=== PATIENT | female | born 1985 | race Two or more races ===

== ENCOUNTER 2024-11-09 22:06 | Emergency (ER) | payer MEDICAID, SELFPAY ==
[2024-11-09 22:09] VITALS: BMI 22.8
[2024-11-09 22:27] VITALS: BP 113/73; PULSE 77; RESP 16; TEMP 36.8; O2SAT 99
--- NOTE | 2024-11-09 22:30 | XR_ITS ---
Examination: Duplex scan of the lower extremity, unilateral right complete Date and time of exam: November 09, 2024 1143 hours INDICATIONS: Right leg pain beginning 3 weeks ago Technique: Duplex scan of the extremity veins using B-mode/grayscale imaging and Doppler spectral analysis and color flow Attention is directed to internal echogenicity, compression and augmentation involving these veins, color flow assessment, spectral analysis Findings: Major deep venous structures in the extremity demonstrate normal course and caliber. There is no evidence of deep vein thrombosis. Normal color flow and spectral analysis Unable to visualize greater saphenous vein Impression: Negative for DVT..
[2024-11-09] MEDS: GABAPENTIN 300 MG CAPSULE PO (22:47)
[2024-11-09] MEDS: ACETAMINOPHEN 500 MG TABLET PO (22:47)
--- NOTE | 2024-11-10 00:32 | EDNOTE_ITS ---
ED Extremity Problem RME/HPI General Chief complaint: Extremity Injury, Lower Stated complaint: RT SCIATIC PAIN/CRAMPS Time Seen by Provider: 11/09/24 22:30 Arrival date/time: 11/09/24 22:06 39F with no significant PMH presents to ED with 3 weeks of RLE pain and some numbness. Patient denies SOB, but is on OCP. Patient also denies fall/trauma, bowel/bladder incontinence, and saddle paresthesia. Limitations: no limitations Related Data Previous Rx's ?Medication ?Instructions ?Recorded Promethazine Hcl (Phenergan) 1 tab PO Q4-6HRPRN ##15 0 02/26/12 Allergies Allergy/AdvReac Type Severity Reaction Status Date / Time No Known Allergies Allergy Unknown Uncoded 02/27/12 10:14 Review of Systems Review of Systems Systems Reviewed: All systems reviewed, normal except as documented Constitutional Constitutional: Reports system reviewed and no additional complaints, except as documented, Denies fever(s) and Denies headache(s) ENT Ears, Nose, Mouth, and Throat: Denies disequilibrium and Denies headache(s) Cardiovascular Cardiovascular: Reports system reviewed and no additional complaints, except as documented, Denies chest pain and Denies dyspnea Respiratory Respiratory: Reports system reviewed and no additional complaints, except as documented, Denies cough and Denies dyspnea Gastrointestinal Gastrointestinal: Reports system reviewed and no additional complaints, except as documented, Denies abdominal pain, Denies nausea and Denies vomiting Musculoskeletal Musculoskeletal: Reports as per HPI, Reports arthralgias and Reports radiating pain into limb Neurologic Neurologic: Reports system reviewed and no additional complaints, except as documented, Denies confusion, Denies disequilibrium and Denies headache(s) Psychiatric Psychiatric: Denies confusion Past Medical History Social History SMOKING STATUS: Never smoker ED Exam General Limitations: Present no limitations General appearance: Present alert and in no apparent distress Head Head exam: Present atraumatic Eye Eye exam: Present normal appearance, PERRL and EOMI ENT ENT exam: Present normal exam, normal oropharynx and mucous membranes moist Neck Neck exam: Present normal inspection, full ROM and trachea midline Chest Chest inspection: Present normal inspection and symmetric chest wall rise Respiratory Respiratory exam: Present normal lung sounds bilaterally Cardiovascular Cardiovascular exam: Present regular rate, normal rhythm and normal heart sounds Abdominal Exam Abdominal exam: Present soft and normal bowel sounds Extremities Exam Extremities exam: Present normal inspection and full ROM Back Exam Back exam: Present normal inspection and full ROM Neurological Exam Neurological exam: Present alert, oriented X3 and CN II-XII intact Psychiatric Psychiatric exam: Present normal affect and normal mood Skin Skin exam: Present warm, dry, intact and normal color Course Quality Measures none Orders Category Date Time Status US venous doppler LE RT Stat Exams 11/09/24 22:30 Completed Acetaminophen Tab [Tylenol ES Tab] Med 11/09/24 22:31 Discontinued 500 mg PO X1 ONE Gabapentin [Neurontin] Med 11/09/24 22:30 Discontinued 300 mg PO X1 ONE Vital Signs Vital signs: Vital Signs Temperature 98.2 F 11/09/24 22:27 Pulse Rate 77 11/09/24 22:27 Respiratory Rate 16 11/09/24 22:27 Blood Pressure 113/73 11/09/24 22:27 Pulse Oximetry (%) 99 11/09/24 22:27 Oxygen Delivery Method Room Air 11/09/24 22:27 O2 at 98% on RA and WNLs Extremity Problem MDM Narrative MDM Narrative:: 39F with no significant PMH presents to ED with 3 weeks of RLE pain and some numbness. Patient denies SOB, but is on OCP. Patient also denies fall/trauma, bowel/bladder incontinence, and saddle paresthesia. Physical exam reveals no gross RLE swelling. Normal WOB. Patient is afebrile, calm, and alert. US no DVT. Symptoms improved with meds. Likely sciatica. Patient data External records reviewed:: [facility] previous records Clinical information provided by:: patient Social determinants that could affect healthcare access:: none Patient has the following chronic illnesses:: none How is presenting disease/condition affected by chronic disease/condition?: no chronic disease Evaluation data The following diagnostics were reviewed and interpreted by me:: radiology exam(s) Lab and/or radiology exams considered but not ordered:: ordered Interpretation Summary: above Medications / Prescriptions Medications or Prescriptions considered but not ordered:: ordered Medication administrations:: Medication Administration History Discontinued Medications Acetaminophen (Acetaminophen 500 Mg Tablet) 500 mg PO X1 ONE Stop: 11/09/24 22:32 Last Admin: 11/09/24 22:47 Dose: 500 mg Documented By: Gabapentin (Gabapentin 300 Mg Capsule) 300 mg PO X1 ONE Stop: 11/09/24 22:31 Last Admin: 11/09/24 22:47 Dose: 300 mg Documented By: above Consultations Consultation(s) initiated? (list below): No Diagnosis Extremity Problem Differential Diagnosis: herpes zoster, gout, cellulitis, superficial thrombophlebitis, deep venous thrombosis of upper extremity, lower extremity edema, deep vein thrombosis of lower extremity and other (sciatica) Most likely diagnosis given after review of the tests above:: sciatica Admission Indicated Admission indicated?: not indicated Admission Request Was there a request for admission?: No Disposition Plan Disposition Plan: Discharge Discharge Attestation Discharge Attestation: The patient and all family members were given an opportunity to ask questions and understood the discharge instructions. Discharge instructions specifically effects, indications for sooner follow up or return to the emergency department, and the expected course of current diagnosis. Patient condition: Stable Discharge Plan Plan Patient Disposition: HOME (Self Care) Disposition Comment: Stable Prescriptions/Referrals Prescriptions/Med Rec: No Action Promethazine Hcl (Phenergan) 25 MG tablet 1 tab PO Q4-6HRPRN Qty: 15 0RF Referrals: Inge Jordan PA-C [Primary Care Provider] - In 1 week Problem List Clinical Impression: Sciatica Patient/Caregiver Discharge Instructions Education Materials: ED Sciatica Additional Instructions: Please follow-up with PCP within 24-48 hours and return immediately if symptoms worsen. If problem persists, recommend outpatient PT and/or MRI follow-up. In the meantime, rest, use ice/heat, and/or compression. Print Language: Serbian Stand Alone Forms: Patient Portal Info Letter MACK/JULIO Supervising Physician MANUEL Supervising Physician: Dr. Gomez
== END 2024-11-10 00:58 | disposition home or self-care (01) ==
PROVIDERS: Emergency Provider Emergency Medicine; PCP Physician Assistant
DX: M54.31 Sciatica, right side (principal)
CPT/HCPCS: 93971; 99284; A9270

== ENCOUNTER 2024-12-20 17:18 | Emergency (ER) | payer SELFPAY ==
[2024-12-20 17:45] VITALS: BP 140/80; PULSE 83; RESP 18; TEMP 37; O2SAT 95
--- NOTE | 2024-12-20 17:53 | EDNOTE_ITS ---
<Statement entered by Ebonie Estrella MD - 12/23/24 07:25> As co-signing physician, I was present and available for consult prn. I concur with the plan and care as documented by the midlevel provider. Lower Extremity Injury RME/HPI General Chief Complaint: Extremity Injury, Lower Stated Complaint: PAIN IN R) LEG, UNABLE TO MOVE OR FEEL LEG Source: patient Arrival date/time: 12/20/24 17:18 39-year-old female with no known medical history presents to the emergency room with a chief complaint of pain that begins in her right hip and radiates down her right leg x 2 Mode of arrival: ambulatory Limitations: no limitations Related Data Previous Rx's ?Medication ?Instructions ?Recorded Promethazine Hcl (Phenergan) 1 tab PO Q4-6HRPRN ##15 0 02/26/12 ibuprofen 600 mg tablet 600 mg PO Q8H PRN fever or p ain 12/20/24 #20 tabs cephalexin 500 mg capsule 500 mg PO TID #15 caps 12/21 hydrocodone 5 mg-acetaminophen 325 1 tab PO Q6H PRN pa in #14 tabs 12/21/24 mg tablet ibuprofen 600 mg tablet 600 mg PO Q6H PRN pain #30 t abs 12/21/24 Allergies Allergy/AdvReac Type Severity Reaction Status Date / Time No Known Allergies Allergy Unknown Uncoded 12/20/24 17:21 Review of Systems Review of Systems Systems Reviewed: All systems reviewed, normal except as documented Constitutional Constitutional: Reports system reviewed and no additional complaints, except as documented, Denies fatigue, Denies fever(s), Denies headache(s) and Denies weakness Eyes Eyes: Reports system reviewed and no additional complaints, except as documented, Denies blurry vision and Denies change in vision ENT Ears, Nose, Mouth, and Throat: Reports system reviewed and no additional compl aints, except as documented, Denies otalgia, Denies headache(s), Denies nasal congestion, Denies throat swelling and Denies vertigo Cardiovascular Cardiovascular: Reports system reviewed and no additional complaints, except as documented, Denies chest pain, Denies dyspnea and Denies dyspnea on exertion Respiratory Respiratory: Reports system reviewed and no additional complaints, except as documented, Denies chest congestion, Denies cough, Denies dyspnea, Denies dyspnea on exertion and Denies wheezing Gastrointestinal Gastrointestinal: Reports system reviewed and no additional complaints, except as documented, Denies abdominal pain, Denies cramping, Denies nausea and Denies vomiting Genitourinary Genitourinary: Reports system reviewed and no additional complaints, except as documented Musculoskeletal Musculoskeletal: Reports system reviewed and no additional complaints, except as documented, Denies back pain, Reports joint swelling, Reports limited range of motion, Reports numbness and Reports radiating pain into limb Integumentary/Breasts Skin/Breast: Reports system reviewed and no additional complaints, except as documented and Denies wounds Neurologic Neurologic: Reports system reviewed and no additional complaints, except as documented, Denies confusion, Denies headache(s), Denies lack of coordination, Reports numbness, Denies vertigo and Denies weakness Psychiatric Psychiatric: Reports system reviewed and no additional complaints, except as documented, Denies anxiety, Denies confusion, Denies depression, Denies paranoia, Denies suicidal ideation and Denies tactile hallucinations Endocrine Endocrine: Reports system reviewed and no additional complaints, except as documented and Denies fatigue Hematologic/Lymphatic Hematologic/Lymphatic: Reports system reviewed and no additional complaints, except as documented and Denies lymphadenopathy Allergic/Immunologic Allergic/Immunologic: Reports system reviewed and no additional complaints, except as documented, Denies throat swelling, Denies urticaria and Denies wheezing Past Medical History Past Medical History CARDIAC: Negative Congestive Heart Failure RESPIRATORY: Negative Chronic Obstructive Pulmonary Disease (COPD) GENITOURINARY: Negative Renal Disease ENDOCRINE: Negative Diabetes Mellitus Type 1 or Diabetes Mellitus Type 2 Social History SMOKING STATUS: Never smoker ED Exam General Limitations: Present no limitations General appearance: Present alert and in no apparent distress Head Head exam: Present atraumatic Eye Eye exam: Present normal appearance, PERRL and EOMI ENT ENT exam: Present normal exam, normal oropharynx and mucous membranes moist Neck Neck exam: Present normal inspection, full ROM and trachea midline Chest Chest inspection: Present normal inspection and symmetric chest wall rise Respiratory Respiratory exam: Present normal lung sounds bilaterally Cardiovascular Cardiovascular exam: Present regular rate, normal rhythm and normal heart sounds Abdominal Exam Abdominal exam: Present soft and normal bowel sounds Extremities Exam Extremities exam: Present normal inspection and full ROM Back Exam Back exam: Present normal inspection, full ROM and CVA tenderness (R) Neurological Exam Neurological exam: Present alert, oriented X3 and CN II-XII intact Psychiatric Psychiatric exam: Present normal affect and normal mood Skin Skin exam: Present warm, dry, intact and normal color Course Quality Measures none Orders Category Date Time Status Ketorolac Inj [Toradol Inj] Med 12/20/24 17:51 Discontinued 30 mg IM X1 ONE Vital Signs Vital signs: Vital Signs Temperature 98.6 F 12/20/24 17:45 Pulse Rate 83 12/20/24 17:45 Respiratory Rate 18 12/20/24 17:45 Blood Pressure 140/80 H 12/20/24 17:45 Pulse Oximetry (%) 95 12/20/24 17:45 O2 saturation 95% within normal limits Extremity Injury, Lower MDM Narrative MDM Narrative:: 39-year-old female with no known medical history presents to the emergency room with a chief complaint of pain that begins in her right hip and radiates down her right leg x 2 Patient is hemodynamically stable and in no apparent distress. Physical examination shows pain and tenderness that begins in her lumbar area of her spine and radiates down her right foot and leg. Patient states this is an intermittent pain and has she has been told it is due to her sciatic. Patient states she has not seen a chiropractor or a physical therapist and has not been referred to a retention specialist. The patient denies any loss of bowel or bladder function or saddle anesthesia. The patient is able to ambulate but states she is having pain shooting down her right leg with movement. Pain medication was given to the patient. The patient was educated to follow-up with her primary care provider for referral to physical therapy or a chiropractor for further management of her sciatic pain. The patient denies any trauma. Patient was discharged and educated to follow-up with primary care provider in the next 24 to 48 hours and return to the emergency room for any evidence of worsening signs or symptoms Patient data External records reviewed:: [facility] previous records Clinical information provided by:: patient Social determinants that could affect healthcare access:: none Patient has the following chronic illnesses:: No chronic illness How is presenting disease/condition affected by chronic disease/condition?: no chronic disease Evaluation data The following diagnostics were reviewed and interpreted by me:: lab results and radiology exam(s) Lab and/or radiology exams considered but not ordered:: Labs and radiology exams considered and ordered Interpretation Summary: N/A Medications / Prescriptions Medications or Prescriptions considered but not ordered:: Medication given Medication administrations:: Medication Administration History Discontinued Medications Ketorolac Tromethamine (Ketorolac Inj 60 Mg/2 Ml Vial) 30 mg IM X1 ONE Stop: 12/20/24 17:52 Last Admin: 12/20/24 18:01 Dose: 30 mg Documented By: OA Medication given Consultations Consultation(s) initiated? (list below): No Diagnosis Extremity Injury, Lower Differential Diagnosis: other (Sciatica/lumbar back pain) Most likely diagnosis given after review of the tests above:: Sciatica Admission Indicated Admission indicated?: not indicated Admission Request Was there a request for admission?: No Disposition Plan Disposition Plan: Discharge Discharge Attestation Discharge Attestation: The patient and all family members were given an opportunity to ask questions and understood the discharge instructions. Discharge instructions specifically effects, indications for sooner follow up or return to the emergency department, and the expected course of current diagnosis. Patient condition: Stable Discharge Plan Plan Patient Disposition: HOME (Self Care) Discharge Disposition comment: Stable Prescriptions/Referrals Prescriptions/Med Rec: New ibuprofen 600 mg tablet 600 mg PO Q8H PRN (Reason: fever or pain) Qty: 20 0RF No Action Promethazine Hcl (Phenergan) 25 MG tablet 1 tab PO Q4-6HRPRN Qty: 15 0RF cephalexin 500 mg capsule 500 mg PO TID Qty: 15 0RF hydrocodone-acetaminophen 5-325 mg tablet 1 tab PO Q6H MDD 9 PRN (Reason: pain) Qty: 14 0RF ibuprofen 600 mg tablet 600 mg PO Q6H PRN (Reason: pain) Qty: 30 0RF Problem List Clinical Impression: Sciatica of right side Patient/Caregiver Discharge Instructions Education Materials: ED Sciatica Additional Instructions: Please follow-up with your primary care provider in the next 24 to 48 hours. Your findings are consistent with sciatica. Please follow-up with your primary care provider for referral to physical therapy or a chiropractor to help you with your signs and symptoms. Medication was sent to your pharmacy please pick it up and take it as indicated For any evidence of worsening signs or symptoms return to the emergency room immediately Print Language: Uzbek Stand Alone Forms: Ellie Award Info., Patient Portal Info Letter MACK/JULIO Supervising Physician MACK/JULIO Supervising Physician: Dr. Trujillo
[2024-12-20] MEDS: KETOROLAC INJ 60 MG/2 ML VIAL 30 MG IM (18:01)
== END 2024-12-20 19:00 | disposition home or self-care (01) ==
PROVIDERS: Emergency Provider Family Medicine; PCP Family Medicine
DX: M54.31 Sciatica, right side (principal)
CPT/HCPCS: 96372; 99283; J1885

== ENCOUNTER 2024-12-21 00:56 | Emergency (ER) | payer SELFPAY ==
[2024-12-21 00:57] VITALS: BMI 24.4
[2024-12-21 01:43] VITALS: BP 122/56; PULSE 71; RESP 18; TEMP 36.9; O2SAT 99
--- NOTE | 2024-12-21 01:48 | PD.EDBACK ---
ED Back Injury Pain RME/HPI General Chief Complaint: Abdominal Pain Stated Complaint: RIGHT FLANK PAIN RADIATES DOWN LEG Time Seen by Provider: 12/21/24 01:48 Arrival date/time: 12/21/24 00:56 RME / HPI RME / HPI Narrative: This section includes all my notes and documentations, including HPI, PE, and ED course. Constantin Ramos MD HPI: 39 y/o female presents to ED c/o right-sided back pain that radiates down to the right leg x approximately 24 hours. Denies any paralysis, urinary or bowel incontinence, nausea, vomiting, hematuria, difficulty with urination, or recent injury. Also denies any history of abdominal surgery or recent injury. Patient has been taking Ibuprofen at home for pain. Patient was seen here earlier, discharged after ultrasound showing no DVT. No other complaints. ROS: All negative except as documented in HPI. Physical Exam: General: Alert and oriented. In severe pain. Eyes: Conjunctivae and lids clear. ENT: No nasal congestion. Neck: Supple. Heart: RRR. Lungs: No respiratory distress. Good air movement. No rhonchi, wheezing, rales. Abdomen: Soft and nontender. Normal bowel sounds. No distension. No rebound or guarding. Back: No CVA tenderness. No spinal tenderness. Legs: No clubbing, cyanosis, edema. Skin: Warm and dry. Neuro: Alert and oriented X 3. No peripheral motor deficits. Blood and urine tests remarkable for UTI. Abdominal CT and lumbar spine CT reports pending. Treatment here included Dilaudid, IV Fluid, Methylprednisolone, Toradol, Rocephin. Significant improvement noted. At 6 AM on 12/21/2024, the care of the patient was transferred to Dr. BOTELLO. Constantin Ramos MD Related Data Previous Rx's ?Medication ?Instructions ?Recorded Promethazine Hcl (Phenergan) 1 tab PO Q4-6HRPRN ##15 02/26/12 ibuprofen 600 mg tablet 600 mg PO Q8H PRN fever or pain 12/20/24 #20 tabs Allergies Allergy/AdvReac Type Severity Reaction Status Date / Time No Known Allergies Allergy Unknown Uncoded 12/20/24 17:21 Review of Systems Review of Systems Systems Reviewed: All systems reviewed, normal except as documented ED Exam Narrative Physical exam: Refer to HPI above Course Quality Measures none Orders Category Date Time Status Saline [Insert IV] NOW Care 12/21/24 01:[address] abdomen pelvis wo con Stat Exams 12/21/24 01:[address] lumbar spine wo con Stat Exams 12/21/24 01:49 Taken CBC Stat Lab 12/21/24 01:58 Completed CMP [Comprehensive Metabolic Panel] Stat Lab 12/21/24 01:58 Completed HCG Qualitative,Urine Stat Lab 12/21/24 04:45 Completed HCG,Qualitative Serum Stat Lab 12/21/24 01:58 Completed Magnesium Stat Lab 12/21/24 01:58 Completed UA, C/S IF [Urinalysis, C/S if Indicated] Stat Lab 12/21/24 04:45 Completed Urine Culture Stat Lab 12/21/24 04:45 Received HYDROmorphone INJ [Dilaudid Inj] Med 12/21/24 01:49 Discontinued 1 mg IVP X1 ONE KCL 10% Liq UDC 15 ML Med 12/21/24 03:37 Discontinued 40 meq PO X1 ONE Ketorolac Inj [Toradol Inj] Med 12/21/24 01:49 Discontinued 30 mg IVP X1 ONE MethylPREDNISolone.* [SoluMEDROL Inj] Med 12/21/24 01:49 Discontinued 125 mg IVP X1 ONE Sodium Chloride 0.9% 1000 ml [Ns] 1,000 ml Med 12/21/24 01:49 Discontinued IV 999 mls/hr Sodium Chloride 0.9% 1000 ml [Ns] 1,000 ml Med 12/21/24 05:28 Ordered IV 999 mls/hr cefTRIAXone/D5w 1gm IV premix [Rocephin/D5w 1gm IV Med 12/21/24 05:28 Ordered premix] 50 ml IV X1 Vital Signs Vital signs: Vital Signs Temperature 98.4 F 12/21/24 01:43 Pulse Rate 71 12/21/24 01:43 Respiratory Rate 18 12/21/24 01:43 Blood Pressure 122/56 L 12/21/24 01:43 Pulse Oximetry (%) 99 12/21/24 01:43 Oxygen Delivery Method Room Air 12/21/24 01:43 Back Pain / Injury MDM Narrative MDM Narrative:: Scribe Attestation: I, Gloria Peralta, am scribing for and in the presence of Dr. Ramos. Provider Notation: Although this document has been carefully reviewed, there may still be some phonetic and other typographical errors.? These errors are purely grammatical due to imperfections in the software program and should not be construed in any way to? compromise the substance of the patient's medical care during this visit. 39 y/o female presents to ED c/o right-sided back pain that radiates down to the right leg x approximately 24 hours. Patient data External records reviewed:: [facility] previous records (Patient seen here 12/20/24 for Sciatica pain of right side.) Clinical information provided by:: patient Social determinants that could affect healthcare access:: none Patient has the following chronic illnesses:: None reported How is presenting disease/condition affected by chronic disease/condition?: no chronic disease Evaluation data The following diagnostics were reviewed and interpreted by me:: lab results and radiology exam(s) Lab and/or radiology exams considered but not ordered:: None Interpretation Summary: Blood and urine test remarkable for UTI. Abdominal CT and lumbar spine CT reports pending. Medications / Prescriptions Medications or Prescriptions considered but not ordered:: None Medication administrations:: Medication Administration History Ceftriaxone Sodium/Dextrose (Rocephin/D5w 1gm Iv Premix) 50 mls @ 100 mls/hr IV X1 ONE Stop: 12/21/24 05:57 Sodium Chloride (Ns) 1,000 mls @ 999 mls/hr IV .Q1H1M ONE Stop: 12/21/24 06:28 Discontinued Medications Hydromorphone HCl (Hydromorphone Inj 2 Mg/Ml Vial) 1 mg IVP X1 ONE Stop: 12/21/24 01:50 Last Admin: 12/21/24 02:13 Dose: 1 mg Documented By: EF Sodium Chloride (Ns) 1,000 mls @ 999 mls/hr IV .Q1H1M ONE Stop: 12/21/24 02:49 Last Infusion: 12/21/24 03:14 Dose: Infused Documented By: Admin: 12/21/24 02:13 Dose: 999 mls/hr Documented By: EF Ketorolac Tromethamine (Ketorolac Inj 30 Mg/Ml Vial) 30 mg IVP X1 ONE Stop: 12/21/24 01:50 Last Admin: 12/21/24 02:13 Dose: 30 mg Documented By: EF Methylprednisolone Sodium Succinate (Methylprednisolone Sod Succ 62.5 Mg/Ml 2ml Vial) 125 mg IVP X1 ONE Stop: 12/21/24 01:50 Last Admin: 12/21/24 02:13 Dose: 125 mg Documented By: EF Potassium Chloride (Potassium Chloride 10% 20 Meq/15 Ml Udc) 40 meq PO X1 ONE Stop: 12/21/24 03:38 Last Admin: 12/21/24 03:52 Dose: 40 meq Documented By: EF Dilaudid, IV Fluid, Methylprednisolone, Toradol, Rocephin. Consultations Consultation(s) initiated? (list below): No Diagnosis Differential diagnosis back pain/injury: lumbar radiculopathy, sciatica, strain of lumbar region, renal colic and pyelonephritis Most likely diagnosis given after review of the tests above:: Complete diagnostic test results pending. Admission Indicated Admission indicated?: not indicated Explain why admission is indicated or not indicated:: Complete diagnostic test results pending. Admission Request Was there a request for admission?: No Disposition Plan Disposition Plan: other (specify) (Care of the patient was transferred to Dr. BOTELLO.) Discharge Plan Prescriptions/Referrals Prescriptions/Med Rec: No Action Promethazine Hcl (Phenergan) 25 MG tablet 1 tab PO Q4-6HRPRN Qty: 15 0RF ibuprofen 600 mg tablet 600 mg PO Q8H PRN (Reason: fever or pain) Qty: 20 0RF Referrals: Romel Hager MD [Primary Care Provider] - In 1 week Problem List Clinical Impression: Back pain, UTI (urinary tract infection) Patient/Caregiver Discharge Instructions Print Language: Swazi
--- NOTE | 2024-12-21 01:49 | XR_ITS ---
Examination: CT abdomen and pelvis without contrast. Coronal 3-D reconstructions. Sagittal 2-D reconstructions. Date and time of exam:December 21, 2024 0409 hours INDICATION: Onset right flank pain today CTDI: vol (mGy): 9.06 DLP: (mGycm): 503 Technique: Axial images of the abdomen have been obtained, 3 mm slice thickness Intravenous contrast material has not been administered. Low dose protocols were performed. One or more of the following dose reduction techniques were used; automated exposure control, adjustment of the mA and/or KV according to patient size, use of iterative reconstruction technique. Findings: No focal liver or splenic lesion A hyperdense gallbladder No pancreatic or adrenal mass No renal or ureteral calculi, no hydronephrosis Aorta normal size No bowel obstruction No pericecal inflammatory change Enlarged fundus of the uterus No bladder mass or bladder calculi L5-S1 large central right paracentral disc bulge IMPRESSION: Recommend hepatobiliary sonography follow-up No renal or ureteral calculi, no hydronephrosis Enlarged fundus of the uterus, recommend ultrasound pelvis follow-up
--- NOTE | 2024-12-21 01:49 | XR_ITS ---
Examination: CT lumbar spine, without contrast. 2-D sagittal reconstructions. 2-D coronal reconstructions. 3-D reconstructions. Date and time of exam:December 21, 2024 0409 hours INDICATIONS: Low back pain radiating down the right leg today CTDI: vol (mGy):9 DLP: (mGycm):647 Technique: Multiple 1.25 mm axial sections of the lumbar spine without intravenous contrast have been obtained. 2-D sagittal and coronal reconstructions have been obtained. 3-D reconstructions have been obtained. Low dose protocols were performed. One or more of the following dose reduction techniques were used; automated exposure control, adjustment of the mA and/or KV according to patient size, use of iterative reconstruction technique. Findings: No acute lumbar fracture No significant lumbar disc narrowing No spondylolisthesis L5-S1 10 mm central right paracentral disc bulge significantly indenting the ventral margin thecal sac and producing mild bilateral L5 ganglionic compression L4-L5 2 mm central lumbar disc bulge IMPRESSION: L5-S1 large, 10 mm, central right paracentral disc bulge significantly indenting the ventral margin thecal sac, displacing both S1 nerve roots and producing mild bilateral L5 ganglionic compression Consider MRI lumbar spine without contrast follow-up
[2024-12-21] MEDS: MethylPREDNISolone SOD SUCC 62.5 MG/ML 2ML VIAL 125 MG IVP (02:13)
[2024-12-21] MEDS: SODIUM CHLORIDE 0.9% 1000 ML 1,000 ML 999 ML IV ×2 (02:13→05:54)
[2024-12-21] MEDS: KETOROLAC INJ 30 MG/ML VIAL IVP (02:13)
[2024-12-21] MEDS: HYDROmorphone INJ 2 MG/ML VIAL 1 MG IVP ×2 (02:13→06:24)
[2024-12-21 02:24] LABS: Basophils % (Auto) 0 % (0-2.5); Eosinophils # (Auto) 0.3 Thou/mm3 (0.0-0.5); Eosinophils % (Auto) 3 % (0-10); Hematocrit 36.7 % (36.0-46.0); Hemoglobin 12.9 g/dL (12.0-16.0); Immature Granulocytes % (Auto) 0 % (0-0); Immature Granulocytes Auto 0.02 Thou/mm3 (0.00-0.00); Lymphocytes # (Auto) 2.5 Thou/mm3 (1.0-4.8); Lymphocytes % (Auto) 27 % (10-50); Mean Corpuscular HGB Conc 35.1 g/dl (31.0-37.0); Mean Corpuscular Hemoglobin 30.7 pg (25.0-35.0); Mean Corpuscular Volume 87 fL (80-100); Monocytes # (Auto) 0.8 Thou/mm3 (0.0-0.8); Monocytes % (Auto) 9 % (0-12); Neutrophils # (Auto) 5.8 Thou/mm3 (1.8-7.7); Neutrophils % (Auto) 62 % (37-80); Nucleated Red Blood Cell % 0 /100 WBC (0); Platelet Count 319 Thou/mm3 (140-440); RDW Standard Deviation 40.2 fL (36.4-46.3); White Blood Count 9.4 Thou/mm3 (3.6-11.0)
[2024-12-21 03:08] LABS: Alanine Aminotransferase 11 U/L (10-49); Albumin, Serum 4.3 gm/dL (3.5-5.0); Albumin/Globulin Ratio 1.3 (1.2-2.2); Alkaline Phosphatase 75 U/L (46-116); Anion Gap 11 (7-16); Aspartate Amino Transferase 16 U/L (0-34); BUN/Creatinine Ratio 10 Ratio (12-20); Bilirubin,Total 0.6 mg/dL (0.3-1.2); Blood Urea Nitrogen 7 mg/dL (9-23); Calcium 8.6 mg/dL (8.3-10.6); Calcium (Corrected) 8.6 mg/dL (8.5-10.1); Carbon Dioxide 23.9 mMol/L (20.0-31.0); Chloride 109 mMol/L (98-107); Creatinine (Component) 0.7 mg/dL (0.6-1.3); Estimated Creatinine Clearance 98.1 mL/min (>60); Globulin 3.2 gm/dL (2.3-3.5); Glucose 102 mg/dL (74-106); HCG,Qualitative Serum Negative; Osmolality,Calculated 284 (275-295); Potassium 3.2 mMol/L (3.4-5.1); Sodium 144 mMol/L (136-145); Total Protein 7.5 gm/dL (5.7-8.2); eGFR > 60 See Note
[2024-12-21] MEDS: POTASSIUM CHLORIDE 10% 20 MEQ/15 ML UDC 40 MEQ PO (03:52)
[2024-12-21 04:00] VITALS: BP 119/73; PULSE 74; RESP 16; O2SAT 97
[2024-12-21 05:02] LABS: Collection Type, Urine Clean Catch
[2024-12-21 05:18] LABS: Bacteria,Urine 1+; Bilirubin,Urine Negative (Negative); Blood,Urine 2+ (Negative); Clarity,Urine Turbid (Clear/Hazy); Color,Urine Yellow (Lt Yel-Yel); Glucose, Urine Negative (Negative); Ketones,Urine 3+ (Negative); Leukocyte Esterase,Urine Positive (Negative); Nitrite,Urine Negative (Negative); Protein,Urine Trace (Neg - Trace); RBC,Urine 6 /hpf (0-3); Specific Gravity,Urine 1.039 (1.001-1.035); Squamous Epithelial Cell,Urine 5 /hpf (0-5); Urobilinogen,Urine Negative mg/dL (0.0-1.0); WBC,Urine 39 /hpf (0-5)
[2024-12-21 05:19] LABS: HCG Qualitative,Urine Negative
[2024-12-21 05:20] LABS: Culture Indicated,Urine Yes
--- NOTE | 2024-12-21 05:48 | PRELIM_ITS ---
CT scan of the lumbar spine without intravenous contrast (axial sections with sagittal and coronal reformats) December 21, 2024 at 0409 hours Clinical History: Low back pain. Comparison: No prior study is available for comparison. Findings: There is no acute lumbar fracture or traumatic subluxation. The paravertebral soft tissues are unremarkable. T12-L1, L1-L2, L2-L3: Disc height and contour is normal. The central canal or neural foraminal stenosis. L3-L4: Small posterior disc protrusion. Mild bilateral ligamentum flavum thickening. No significant central canal or neural foraminal stenosis. L4-L5: Small posterior disc protrusion and ligamentum flavum thickening. No significant central canal or neural foraminal stenosis. L5-S1: Large posterior right paracentral disc protrusion. Probable mild central canal stenosis. No neural foraminal stenosis. Impression: No evidence of acute lumbar fracture or traumatic subluxation. L5-S1 disc protrusion, the mastoid air cells and visualized paranasal sinuses are clear. impinge the right S1 nerve root. Consider MRI for further evaluation. Discussion Details: Results verbally communicated to : Dr. Ramos at 05:28 AM 12/21/2024 Report Electronically Signed By: Konstantin Barger 12/21/2024 5:47:57 AM [EST]
--- NOTE | 2024-12-21 05:52 | PRELIM_ITS ---
CT scan of the abdomen and pelvis without intravenous contrast (axial sections with sagittal and coronal reformats) December 21, 2024 at 0409 hours Clinical History: Right flank pain. Comparison: None. Findings: Mild atelectasis in bilateral lung bases. Liver, gallbladder, spleen, pancreas, adrenal glands and kidneys are unremarkable. No urinary tract stone or obstruction is identified. The urinary bladder is normal. There is no adnexal cyst or mass. No free intraperitoneal air or fluid. The appendix is normal (best seen on image 154). The abdominal wall is unremarkable. No acute osseous process. Impression: No acute process of the abdomen or pelvis on this noncontrast exam. Report Electronically Signed By: Konstantin Barger 12/21/2024 5:51:57 AM [EST]
[2024-12-21] MEDS: cefTRIAXone/D5w 1gm IV premix 1 GM/50 ML BAG IV (05:54)
[2024-12-21 06:14] VITALS: BP 125/91; PULSE 76; RESP 18; O2SAT 99
--- NOTE | 2024-12-21 06:22 | EDNOTE_ITS ---
Emergency Room Addendum <Avani French - Last Filed: 12/21/24 11:41> Addendum Narrative: 0600: Care assumed from Dr. Ramos, the previous shift emergency physician. Past medical, surgical, social and family history reviewed. Vitals and home medications reviewed. I will assume the care of the patient at this time, pending diagnostics tests and final disposition. Please refer to the emergency department record for history and examination from initial visit.? Patient complains of right-sided low back pain. Requesting pain medication. Dilaudid ordered. CT lumbar spine preliminary: L5-S1 disc protrusion with impingement on the S1 nerve root UA: Urine spec gravity 1.039, positive LE, WBC, bacteria. Rocephin ordered by previous provider. 1000: Patient remains clinically stable throughout the emergency department visit. Re-assessment at the time of disposition demonstrates that the patient is in no acute distress. We reviewed all the results, analysis, and treatment plans. Patient is amenable to discharge. Strict return precautions were outlined. Patient was discharged in stable condition. Diagnoses: -Back pain -UTI -Protrusion of intervertebral disc of lumbosacral region -Lumbar nerve root impingement RADIOLOGY [facility] [address] [place] [address] [employer] Preliminary Report Draft Patient: KAY EASTMAN [facility]. Record#: [id number] Birthdate: 1985 Age/Sex: 39 / F Location: [facility] Attending Dr: Ordering Physician: Date of Service: Procedure(s): Accession Number(s): cc: ~ CT scan of the abdomen and pelvis without intravenous contrast (axial sections with sagittal and coronal reformats) December 21, 2024 at 0409 hours Clinical History: Right flank pain. Comparison: None. Findings: Mild atelectasis in bilateral lung bases. Liver, gallbladder, spleen, pancreas, adrenal glands and kidneys are unremarkable. No urinary tract stone or obstruction is identified. The urinary bladder is normal. There is no adnexal cyst or mass. No free intraperitoneal air or fluid. The appendix is normal (best seen on image 154). The abdominal wall is unremarkable. No acute osseous process. Impression: No acute process of the abdomen or pelvis on this noncontrast exam. Report Electronically Signed By: Konstantin Barger 12/21/2024 5:51:57 AM [EST] -- [address] [address] [employer] Preliminary Report Draft Patient: KAY EASTMAN [place]. com. cn. Record#: [id number] Birthdate: 1985 Age/Sex: 39 / F Location: [facility] Attending Dr: Ordering Physician: Date of Service: Procedure(s): Accession Number(s): cc: ~ CT scan of the lumbar spine without intravenous contrast (axial sections with sagittal and coronal reformats) December 21, 2024 at 0409 hours Clinical History: Low back pain. Comparison: No prior study is available for comparison. Findings: There is no acute lumbar fracture or traumatic subluxation. The paravertebral soft tissues are unremarkable. T12-L1, L1-L2, L2-L3: Disc height and contour is normal. The central canal or neural foraminal stenosis. L3-L4: Small posterior disc protrusion. Mild bilateral ligamentum flavum thickening. No significant central canal or neural foraminal stenosis. L4-L5: Small posterior disc protrusion and ligamentum flavum thickening. No significant central canal or neural foraminal stenosis. L5-S1: Large posterior right paracentral disc protrusion. Probable mild central canal stenosis. No neural foraminal stenosis. Impression: No evidence of acute lumbar fracture or traumatic subluxation. L5-S1 disc protrusion, the mastoid air cells and visualized paranasal sinuses are clear. impinge the right S1 nerve root. Consider MRI for further evaluation. Discussion Details: Results verbally communicated to : Dr. Ramos at 05:28 AM 12/21/2024 Report Electronically Signed By: Konstantin Barger <Ebonie Estrella MD - Last Filed: 12/21/24 06:31> Addendum Narrative: 0600: Care assumed from Dr. Ramos, the previous shift emergency physician. Past medical, surgical, social and family history reviewed. Vitals and home medications reviewed. I will assume the care of the patient at this time, pending diagnostics tests and final disposition. Please refer to the emergency department record for history and examination from initial visit.? Patient complains of right-sided low back pain. Requesting pain medication. Dilaudid ordered. CT lumbar spine preliminary: L5-S1 disc protrusion with impingement on the S1 nerve root UA: Urine spec gravity 1.039, positive LE, WBC, bacteria. Rocephin ordered by previous provider.
[2024-12-21] MEDS: ONDANSETRON INJ 2 MG/ML INJ 2 ML 4 MG IV (06:24)
--- NOTE | 2024-12-21 08:17 | PC.NURSE ---
Patient was assessed in room 18. Patient is alert and oriented, states she came into the ED for c/o right leg pain. Right leg pain radiates from right upper hip down to right heel, no pain at this time but when pain is present she describes it as constant cramping feel. Pt also stated that she had been vomiting a few days prior to leg pain starting. Right leg has no swelling or redness noted on assessment.
[2024-12-21] MEDS: KETOROLAC INJ 30 MG/ML VIAL 15 MG IVP (08:26)
[2024-12-21] MEDS: CYCLObenzaPRINE 5 MG TABLET PO (08:27)
[2024-12-21] MEDS: LIDOCAINE 5% 1 PATCH TOP (10:53)
[2024-12-21 11:07] VITALS: BP 108/64; PULSE 69; RESP 16; TEMP 36.4; O2SAT 99
[2024-12-21 11:12] VITALS: BP 108/64; PULSE 69; RESP 17; TEMP 36.4; O2SAT 99
== END 2024-12-21 11:14 | disposition home or self-care (01) ==
PROVIDERS: Emergency Medicine; Emergency Provider Emergency Medicine; PCP Family Medicine
DX: N39.0 Urinary tract infection, site not specified (principal); M54.9 Dorsalgia, unspecified
CPT/HCPCS: 36415; 72131; 74176; 80053; 81001; 81025; 83735; 84703; 85025; 87086; 96361; 96365; 96375; 96376; 99284; J0696; J1171; J1885; J2405; J2919; J3490; J7030; A9270